=== PATIENT | female | born 1970 | race American Indian/Alaskan Native ===

== ENCOUNTER 2020-08-30 10:06 | Emergency (ER) | payer OTHER ==
--- NOTE | 2020-08-30 10:59 | Emergency Department Report ---
<MAHENDRA SCOTT - Last Filed: 08/30/20 17:34> ED General Adult HPI - General Chief complaint: Back Pain/Injury Stated complaint: back pains Time Seen by Provider: 08/30/20 10:39 - Related Data Previous Rx's Medication Instructions Recorded Last Taken Type Albuterol Sulfate [Proventil Hfa] 6.7 gm IH TID PRN #1 hfa.aer.ad 08/30/20 Unknown Rx Azithromycin [Zithromax TAB] 250 mg PO QDAY 5 Days #6 tablet 08/30/20 Unknown Rx Naproxen [EC-Naprosyn] 500 mg PO BID PRN #20 tablet. 08/30/20 Unknown Rx Prednisone [predniSONE 10 mg 10 mg PO .TAPER #1 tab.ds.pk 08/30/20 Unknown Rx (6-Day Pack, 21 Tabs)] Promethazine [Phenergan] 25 mg PO Q8HR PRN #10 tab 08/30/20 Unknown Rx methOCARBAMOL [Robaxin TAB] 500 mg PO BID PRN #20 tab 08/30/20 Unknown Rx Allergies Allergy/AdvReac Type Severity Reaction Status Date / Time No Known Allergies Allergy Unverified 08/30/20 13:07 ED Past Medical Hx - Medications Home Medications: Home Medications Medication Instructions Recorded Confirmed Last Taken Type Albuterol Sulfate [Proventil Hfa] 6.7 gm IH TID PRN #1 hfa.aer.ad 08/30/20 Unknown Rx Azithromycin [Zithromax TAB] 250 mg PO QDAY 5 Days #6 tablet 08/30/20 Unknown Rx Naproxen [EC-Naprosyn] 500 mg PO BID PRN #20 tablet. 08/30/20 Unknown Rx Prednisone [predniSONE 10 mg 10 mg PO .TAPER #1 tab.ds.pk 08/30/20 Unknown Rx (6-Day Pack, 21 Tabs)] Promethazine [Phenergan] 25 mg PO Q8HR PRN #10 tab 08/30/20 Unknown Rx methOCARBAMOL [Robaxin TAB] 500 mg PO BID PRN #20 tab 08/30/20 Unknown Rx ED Medical Decision Making - Lab Data Result diagrams: 08/30/20 11:14 08/30/20 11:14 - Radiology Data [facility] [address] [place] [address] Cat Scan Report Signed Patient: QUANG WATTS MR#: [id number] [birth year] : 1970 Acct:[id number] Age/Sex: 50 / F ADM Date: 08/30/20 Loc: ED Attending Dr: Ordering Physician: ROLF NICOLAS Date of Service: 08/30/20 Procedure(s): CT angio chest Accession Number(s): [id number] cc: ROLF NICOLAS CTA CHEST WITH IV CONTRAST INDICATION: left scapula pain, tachycardia, hypoxia. Left chest pain with dyspnea TECHNIQUE: Axial CT images were obtained through the chest after injection of 100 mL IV contrast. 3 plane MIP reconstructions were produced. All CT scans at this location are performed using CT dose reduction for ALARA by means of automated exposure control. COMPARISON: None available. FINDINGS: PULMONARY ARTERIES: Technique for detection of pulmonary thromboembolus is fair 2 somewhat suboptimal secondary to respiratory motion artifact. No large central pulmonary thromboembolus is identified. A more distal small embolus would be difficult to exclude.. AORTA AND ARTERIES: No acute abnormality. MEDIASTINUM: No mass, lymphadenopathy or other significant abnormality. The heart is normal in size without a pericardial effusion. The trachea and main bronchi are patent and normal in caliber. LUNGS: No suspicious consolidation, nodule or mass. No pneumothorax or pleural effusion. ADDITIONAL FINDINGS: None. UPPER ABDOMEN: No acute findings. BONES: No significant osseous abnormality. IMPRESSION: 1. No CT evidence for pulmonary embolism within the limits of the exam. Please see above comments 2. No acute findings. Signer Name: Mohan Cristobal MD Signed: 08/30/2020 5:18 PM Workstation Name: [id number] ED Disposition Clinical Impression: Pain of left scapula, Chest pain, pleuritic Asthma Qualifiers: Asthma severity: unspecified severity Asthma persistence: unspecified Asthma complication type: with acute exacerbation Qualified Code(s): J45.901 - Unspecified asthma with (acute) exacerbation Acute bronchitis Qualifiers: Bronchitis organism: unspecified organism Qualified Code(s): J20.9 - Acute bronchitis, unspecified Disposition: DC- TO HOME OR SELFCARE Condition: Stable Instructions: Asthma, Adult, Acute Bronchitis, Adult, Chest Pain (ED), Asthma (ED), Acute Bronchitis (ED) Additional Instructions: please take medication as prescribed. increase your fluid intake. follow up with a primary care doctor. please self quarantine for 10 days. recommend for you to get outpatient COVID 19 testing. return to the emergency room immediately for any new or worsening symptoms. Prescriptions: Naproxen [EC-Naprosyn] 500 mg PO BID PRN #20 tablet.dr PRN Reason: pain Promethazine [Phenergan] 25 mg PO Q8HR PRN #10 tab PRN Reason: nausea/vomiting Prednisone [predniSONE 10 mg (6-Day Pack, 21 Tabs)] 10 mg PO .TAPER #1 tab.ds.pk Albuterol Sulfate [Proventil Hfa] 6.7 gm IH TID PRN #1 hfa.aer.ad PRN Reason: wheezing/shortness of breath methOCARBAMOL [Robaxin TAB] 500 mg PO BID PRN #20 tab PRN Reason: pain Azithromycin [Zithromax TAB] 250 mg PO QDAY 5 Days #6 tablet Referrals: PRIMARY CAREMD [Primary Care Provider] - 2-3 Days MIKHAIL CHIRINOS MD [Staff Physician] - 2-3 Days [facility] [Provider Group] - 2-3 Days Forms: Work/School Release Form(ED) Print Language: BENGALI <MURRAY RODRIGUEZ - Last Filed: 08/30/20 19:59> ED General Adult HPI - General Source: patient Mode of arrival: Ambulatory Limitations: No Limitations - History of Present Illness Initial comments: pt is a 50 yo female who presents to the ED with left upper back pain that began suddenly today while making breakfast. she denies any fall or injury. she denies any heavy lifting or feeling a pulling sensation. she states the pain is to the left scapula. she states her pain is worse with movement and feels a pain when taking a deep breath in. she states she has a chronic cough for a year with clear sputum. she states she is a non smoker. she denies any recent travel, recent surgery, hormone use, sick contacts. she denies any fever, n/v/d, SOB, leg swelling. PMHx HTN. 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 ED Review of Systems ROS: Stated complaint: back pains Other details as noted in HPI Comment: All other systems reviewed and negative ED Past Medical Hx - Past Medical History Previous Medical History?: Yes Hx Hypertension: Yes - Surgical History Past Surgical History?: No ED Physical Exam - General Limitations: No Limitations General appearance: alert, in no apparent distress - Head Head exam: Present: atraumatic, normocephalic - Eye Eye exam: Present: normal appearance - ENT ENT exam: Present: mucous membranes moist - Neck Neck exam: Present: normal inspection, full ROM. Absent: tenderness - Respiratory Respiratory exam: Present: normal lung sounds bilaterally. Absent: respiratory distress, wheezes, rales, rhonchi, stridor, chest wall tenderness, accessory muscle use, decreased breath sounds, prolonged expiratory - Cardiovascular Cardiovascular Exam: Present: regular rate, normal rhythm, normal heart sounds. Absent: systolic murmur, diastolic murmur, rubs, gallop - Neurological Exam Neurological exam: Present: alert, oriented X3 - Psychiatric Psychiatric exam: Present: normal affect, normal mood - Skin Skin exam: Present: warm, dry, intact ED Course Vital Signs 08/30/20 08/30/20 08/30/20 10:11 10:46 13:09 Temperature 98.6 F Pulse Rate 109 H 89 Pulse Rate [ Posterior Bilateral Throughout] Respiratory 20 18 Rate Respiratory Rate [Posterior Bilateral Throughout] Blood Pressure 157/105 Blood Pressure 146/101 [Right] O2 Sat by Pulse 98 99 Oximetry 08/30/20 08/30/20 08/30/20 13:39 14:53 15:15 Temperature Pulse Rate 128 H 127 H Pulse Rate [ Posterior Bilateral Throughout] Respiratory 18 22 19 Rate Respiratory Rate [Posterior Bilateral Throughout] Blood Pressure 145/94 Blood Pressure 152/90 [Right] O2 Sat by Pulse 96 Oximetry 08/30/20 08/30/20 08/30/20 15:30 15:56 16:00 Temperature Pulse Rate 113 H 114 H Pulse Rate [ 130 H Posterior Bilateral Throughout] Respiratory 17 17 Rate Respiratory 24 Rate [Posterior Bilateral Throughout] Blood Pressure 145/94 145/94 Blood Pressure [Right] O2 Sat by Pulse 95 87 Oximetry 08/30/20 08/30/20 08/30/20 16:48 17:00 17:30 Temperature Pulse Rate 128 H 105 H 86 Pulse Rate [ Posterior Bilateral Throughout] Respiratory 21 24 20 Rate Respiratory Rate [Posterior Bilateral Throughout] Blood Pressure 125/83 125/83 125/83 Blood Pressure [Right] O2 Sat by Pulse Oximetry 08/30/20 18:07 Temperature Pulse Rate 101 H Pulse Rate [ Posterior Bilateral Throughout] Respiratory 19 Rate Respiratory Rate [Posterior Bilateral Throughout] Blood Pressure Blood Pressure 127/89 [Right] O2 Sat by Pulse 97 Oximetry - Reevaluation(s) Reevaluation #1: 08/30/20 15:00 pts labs, EKG, CXR are all stable, on revitalization, pts HR is 128, oxygen saturation is 88% on RA, she feels nauseated, upon listening to her breath sounds again she now has wheezing, she is a non smoker, denies hx of asthma ED Medical Decision Making - Lab Data Result diagrams: 08/30/20 11:14 08/30/20 11:14 - EKG Data EKG shows normal: sinus rhythm, axis, intervals, ST-T waves Rate: normal - EKG Data 08/30/20 12:51 low voltage no STEMI - Radiology Data Radiology results: report reviewed Ordering Physician: ROLF NICOLAS Date of Service: 08/30/20 Procedure(s): XR chest routine 2V Accession Number(s): [id number] cc: ROLF NICOLAS Fluoro Time In Minutes: CHEST 2 VIEWS INDICATION / CLINICAL INFORMATION: Chest Pain. COMPARISON: None available. FINDINGS: SUPPORT DEVICES: None. HEART / MEDIASTINUM: No significant abnormality. LUNGS / PLEURA: No significant pulmonary or pleural abnormality. No pneumothorax. ADDITIONAL FINDINGS: No significant additional findings. IMPRESSION: 1. No acute findings. Signer Name: Nava Xie MD Signed: 08/30/2020 11:57 AM Workstation Name: [id number] Transcribed By: JR Dictated By: Nava Xie MD Electronically Authenticated By: Nava Xie MD Signed Date/Time: 08/30/20 1157 DD/ 1157 TD/TT: - Medical Decision Making pt is a 50 yo female who presents to the ED with left upper back pain that began suddenly today while making breakfast. she denies any fall or injury. she denies any heavy lifting or feeling a pulling sensation. she states the pain is to the left scapula. she states her pain is worse with movement and feels a pain when taking a deep breath in. she states she has a chronic cough for a year with clear sputum. she states she is a non smoker. she denies any recent travel, recent surgery, hormone use, sick contacts. she denies any fever, n/v/d, SOB, leg swelling. PMHx HTN. 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 Vitals with mild tachycardia which improved in exam room, mildly elevated blood pressure, otherwise vitals are stable. Patient has no tenderness palpation on exam. Labs are stable. Troponin is negative x2. D-dimer is negative. EKG with low voltage, otherwise normal. Chest x-ray 1. No acute findings. pts labs, EKG, CXR are all stable, on revitalization, pts HR is 128, oxygen saturation is 88% on RA, she feels nauseated, upon listening to her breath sounds again she now has wheezing, she is a non smoker, denies hx of asthma. CT angio chest: 1. No CT evidence for pulmonary embolism within the limits of the exam. Please see above comments 2. No acute findings. Patient given neb treatment and steroids. BNP is normal. On reexamination wheezing has resolved, patient is feeling much better and ready to go home. Patient was ambulated in the emergency department for 2 minutes and maintained oxygen saturation of 97 percent or greater on room air. Patient feels much better and no longer feels short of breath. Patient's pain has improved. Discussed all results with Dr. Mahendra Scott who advises patient can be discharged home with albuterol inhaler and steroids. Patient given prescription for azithromycin, Phenergan, naproxen, Robaxin, prednisone, albuterol inhaler. Advised patient please take medication as prescribed. increase your fluid intake. follow up with a primary care doctor. please self quarantine for 10 days. recommend for you to get outpatient COVID 19 testing. return to the emergency room immediately for any new or worsening symptoms. - Differential Diagnosis Asthma, bronchitis, PNA, COVID-19, PE, PTX, CHF, pleural effusion Critical care attestation.: If time is entered above; I have spent that time in minutes in the direct care of this critically ill patient, excluding procedure time. ED Disposition Is pt being admited?: No Does the pt Need Aspirin: No Time of Disposition: 17:53
[2020-08-30 11:51] LABS: Alanine Aminotransferase 11 units/L (7-56); Albumin 4.4 g/dL (3.9-5); BUN/Creatinine Ratio 11; Blood Urea Nitrogen 10 mg/dL (7-17); Calcium 9.4 mg/dL (8.4-10.2); Hemolysis Index 8
--- NOTE | 2020-08-30 12:01 | XRay Report ---
CHEST 2 VIEWS INDICATION / CLINICAL INFORMATION: Chest Pain. COMPARISON: None available. FINDINGS: SUPPORT DEVICES: None. HEART / MEDIASTINUM: No significant abnormality. LUNGS / PLEURA: No significant pulmonary or pleural abnormality. No pneumothorax. ADDITIONAL FINDINGS: No significant additional findings. IMPRESSION: 1. No acute findings. Signer Name: Nava Xie MD Signed: 08/30/2020 11:57 AM Workstation Name: [id number]
[2020-08-30 12:22] LABS: Basophils # (Auto) 0.1 K/mm3 (0.0-0.1); Basophils % (Auto) 1.3 % (0.0-1.8); Eosinophils # (Auto) 0.5 K/mm3 (0.0-0.4); Eosinophils % (Auto) 7.4 % (0.0-4.3); Hematocrit 47.7 % (30.3-42.9); Hemoglobin 15.1 gm/dl (10.1-14.3); Lymphocytes % (Auto) 15.5 % (13.4-35.0); Mean Corpuscular HGB Conc 32 % (30-34); Mean Corpuscular Volume 83 fl (79-97); Monocytes # (Auto) 0.7 K/mm3 (0.0-0.8); Platelet Count 248 K/mm3 (140-440); Red Blood Count 5.72 M/mm3 (3.65-5.03); Red Cell Distribution Width 15.6 % (13.2-15.2)
[2020-08-30] MEDS ORDERED: CYCLOBENZAPRINE 10 MG TAB PO ONE (12:54)
[2020-08-30] MEDS ORDERED: KETOROLAC 10 MG TAB PO ONE (12:54)
[2020-08-30] MEDS ORDERED: ALBUTEROL 2.5 MG/3 ML NEBU IH ONE (14:58)
[2020-08-30] MEDS ORDERED: ONDANSETRON 4 MG/2 ML INJ IV ONE (14:58)
[2020-08-30] MEDS ORDERED: IPRATROPIUM 0.02% NEBU 2.5 ML IH ONE (14:58)
[2020-08-30] MEDS ORDERED: dexAMETHasone 20 MG/5 ML VIAL IV ONE (14:58)
[2020-08-30 16:06] LABS: INR 0.87 (0.87-1.13); Partial Thromboplastin Time 35.6 Sec. (24.2-36.6)
--- NOTE | 2020-08-30 17:23 | Cat Scan Report ---
CTA CHEST WITH IV CONTRAST INDICATION: left scapula pain, tachycardia, hypoxia. Left chest pain with dyspnea TECHNIQUE: Axial CT images were obtained through the chest after injection of 100 mL IV contrast. 3 plane MIP re constructions were produced. All CT scans at this location are performed using CT dose reduction for ALARA by means of automated exposure control. COMPARISON: None available. FINDINGS: PULMONARY ARTERIES: Technique for detection of pulmonary thromboembolus is fair 2 somewhat suboptimal secondary to respiratory motion artifact. No large central pulmonary thromboembolus is identified. A more distal small embolus would be difficult to exclude.. AORTA AND ARTERIES: No acute abnormality. MEDIASTINUM: No mass, lymphadenopathy or other significant abnormality. The heart is normal in size w ithout a pericardial effusion. The trachea and main bronchi are patent and normal in caliber. LUNGS: No suspicious consolidation, nodule or mass. No pneumothorax or pleural effusion. ADDITIONAL FINDINGS: None. UPPER ABDOMEN: No acute findings. BONES: No significant osseous abnormality. IMPRESSION: 1. No CT evidence for pulmonary embolism within the limits of the exam. Please see above comments 2. No acute findings. Signer Name: Mohan Cristobal MD Signed: 08/30/2020 5:18 PM Workstation Name: [id number]
[2020-08-30 18:07] VITALS: BP 127/89
== END 2020-08-30 18:14 | disposition home or self-care (01) ==
LOC: ED 10:06
DX: J45.909 Unspecified asthma, uncomplicated (principal); J20.9 Acute bronchitis, unspecified; R07.89 Other chest pain; M54.6 Pain in thoracic spine; Z79.2 Long term (current) use of antibiotics; Z79.899 Other long term (current) drug therapy
CPT/HCPCS: 36415; 71046; 71275; 80053; 83880; 84484; 84703; 85025; 85379; 85610; 85730; 93005; 94640; 96374; 96375; 99285; J1100; J2405; Q9967; 94644

== ENCOUNTER 2020-11-10 07:27 | Emergency (ER) | payer OTHER ==
[2020-11-10 07:31] VITALS: BP 153/102
--- NOTE | 2020-11-10 07:35 | Event Note ---
ED Screening Note ED Screening Note: covid in July hx htn on norvasc took this am chills cough sinus s/s HR 94 bp slightly inc This initial assessment/diagnostic orders/clinical plan/treatment(s) is/are subject to change based on patients health status, clinical progression and re- assessment by fellow clinical providers in the ED. Further treatment and workup at subsequent clinical providers discretion. Patient/guardian urged not to elope from the ED as their condition may be serious if not clinically assessed and managed. Initial orders include: xray ro pna
--- NOTE | 2020-11-10 07:43 | Emergency Department Report ---
Minor Respiratory - HPI Chief Complaint: Dyspnea/Respdistress Stated Complaint: COUGH, SOB Time Seen by Provider: 11/10/20 07:30 Duration: 3 Days Pain Location: Chest Severity: mild Minor Respiratory: Yes Sore Throat, Yes Cough, Yes Shortness of Breath, No Rhinorrhea, No Ear Pain, No Sick Contacts, No Hemoptysis, No Chest Pain, No Fever Other History: Patient is a 50-year-old that comes to the emergency room with cough and congestion for 3 days. She is concerned that she has Covid. She states that she has chest pain with the cough. She has shortness of breath with the cough as well. She denies fever or chills. Patient is ambulatory nontoxic [id number] on arrival to triage. She has no hypoxia. She has not been immunized for Covid. Patient endorses sinus pressure and pain yesterday. She also endorses a sore throat and scratchy throat. Patient has a history of hypertension she reports that she is taking her medications. Blood pressure noted to be elevated in triage. The patient is denying any cardiac type chest pain. She has been taking [id number] cough medicines for her cough. ED Review of Systems ROS: Stated complaint: COUGH, SOB Other details as noted in HPI Comment: All other systems reviewed and negative ED Past Medical Hx - Past Medical History Previous Medical History?: Yes Hx Hypertension: Yes - Surgical History Past Surgical History?: No - Social History Smoking Status: Never Smoker Substance Use Type: None - Medications Home Medications: Home Medications Medication Instructions Recorded Confirmed Last Taken Type Albuterol Sulfate [Proventil Hfa] 6.7 gm IH TID PRN #1 hfa.aer.ad 08/30/20 Unknown Rx Azithromycin [Zithromax TAB] 250 mg PO QDAY 5 Days #6 tablet 08/30/20 Unknown Rx Naproxen [EC-Naprosyn] 500 mg PO BID PRN #20 tablet.dr 08/30/20 Unknown Rx Prednisone [predniSONE 10 mg 10 mg PO .TAPER #1 tab.ds.pk 08/30/20 Unknown Rx (6-Day Pack, 21 Tabs)] Promethazine [Phenergan] 25 mg PO Q8HR PRN #10 tab 08/30/20 Unknown Rx methOCARBAMOL [Robaxin TAB] 500 mg PO BID PRN #20 tab 08/30/20 Unknown Rx Amoxicillin [Trimox CAP] 500 mg PO BID #20 capsule 11/10/20 Unknown Rx Cetirizine HCl [ZyrTEC] 10 mg PO DAILY #30 capsule 11/10/20 Unknown Rx Fluticasone [Flonase] 1 spray NS QDAY #1 bottle 11/10/20 Unknown Rx predniSONE [Deltasone] 20 mg PO DAILY #5 tablet 11/10/20 Unknown Rx Minor Respiratory Exam - Exam General: Vital signs noted. No distress. Alert and acting appropriately. HEENT: Yes Moist Mucous Membranes, No Pharyngeal Erythema, No Pharyngeal Exudates, No Rhinorrhea, No Conjuctival Injection, No Frontal Tenderness, No Maxillary Tenderness Ear: Neither TM Bulge, Neither TM Erythema, Neither EAC Pain, Neither EAC Discharge Neck: Yes Supple, No Adenopathy Lungs: Yes Good Air Exchange, No Wheezes, No Ronchi, No Stridor, No Cough, No Labored Respirations, No Retractions, No Use of Accessory Muscles, No Other Abnormal Lung Sounds Heart: Yes Regular, No Murmur Abdomen: Yes Normal Bowel Sounds, No Tenderness, No Peritoneal Signs Skin: No Rash, No Edema Neurologic: Alert and oriented, no deficits. Musculoskeletal: Unremarkable. ED Course Vital Signs 11/10/20 07:28 Temperature 98.3 F Pulse Rate 94 H Respiratory 20 Rate Blood Pressure 153/102 O2 Sat by Pulse 100 Oximetry ED Medical Decision Making - Radiology Data Radiology results: report reviewed, image reviewed NAP - Medical Decision Making Vital Signs 11/10/20 07:28 Temperature 98.3 F Pulse Rate 94 H Respiratory 20 Rate Blood Pressure 153/102 O2 Sat by Pulse 100 Oximetry XR NAP VSS PT BP WAS ELEVATED ON ARRIVAL REPEAT BP ON DC 140/90 PT WILL MONITOR BLOOD PRESSURE AND FOLLOW UP WITH PCP PT BEING DC HOME WITH DC PLAN OF CARE. SHE VERBALIZES UNDERSTANDING OF PLAN INCLUDING FOLLOW UP. - Differential Diagnosis RO PNA Critical care attestation.: If time is entered above; I have spent that time in minutes in the direct care of this critically ill patient, excluding procedure time. ED Disposition Clinical Impression: URI (upper respiratory infection), Sinusitis, Elevated blood pressure reading Disposition: DC-01 TO HOME OR SELFCARE Is pt being admited?: No Does the pt Need Aspirin: No Condition: Stable Instructions: Sinusitis, Adult, [id number] Prescriptions: predniSONE [Deltasone] 20 mg PO DAILY #5 tablet Fluticasone [Flonase] 1 spray NS QDAY #1 bottle Amoxicillin [Trimox CAP] 500 mg PO BID #20 capsule Cetirizine HCl [ZyrTEC] 10 mg PO DAILY #30 capsule Referrals: MIKHAIL CHIRINOS MD [Staff Physician] - 3-5 Days Forms: Work/School Release Form(ED) Time of Disposition: 08:20
--- NOTE | 2020-11-10 08:03 | XRay Report ---
CHEST 2 VIEWS INDICATION: cough chills. COMPARISON: 08/30/2020 FINDINGS: Support devices: None. Heart: Within normal limits. Lungs/pleura: No acute air space or interstitial disease. No pneumothorax. Additional findings: None. IMPRESSION: No acute findings. Signer Name: Devon Lemus Jr, MD Signed: 11/10/2020 7:59 AM Workstation Name: [id number]
== END 2020-11-10 09:02 | disposition home or self-care (01) ==
LOC: ED 07:27
DX: J06.9 Acute upper respiratory infection, unspecified (principal); J32.9 Chronic sinusitis, unspecified; R03.0 Elevated blood-pressure reading, without diagnosis of hypertension; I10 Essential (primary) hypertension; Z79.899 Other long term (current) drug therapy
CPT/HCPCS: 71046

== ENCOUNTER 2021-11-12 22:38 | Emergency (ER) | payer OTHER ==
--- NOTE | 2021-11-12 23:45 | XRay Report ---
CHEST 1 VIEW 11/12/2021 10:33 PM INDICATION / CLINICAL INFORMATION: cough. COMPARISON: Chest 2 views from 11/10/2020. FINDINGS: SUPPORT DEVICES: None. HEART / MEDIASTINUM: No significant abnormality. LUNGS / PLEURA: No significant pulmonary abnormality. No significant pleural effusion. No pneumothora x. ADDITIONAL FINDINGS: No significant additional findings. IMPRESSION: 1. No acute abnormality of the chest. Signer Name: Cornelio Hannah MD Signed: 11/12/2021 11:41 PM Workstation Name: [id number]
[2021-11-13] MEDS ORDERED: methylPREDNISolone Sod Succinate 125 MG/2 ML INJ IM ONE ×3 (01:15→03:33)
[2021-11-13] MEDS ORDERED: IPRATROPIUM 0.02% NEBU 2.5 ML IH ONE (01:15)
[2021-11-13] MEDS ORDERED: ALBUTEROL 2.5 MG/3 ML NEBU IH ONE (01:15)
--- NOTE | 2021-11-13 02:59 | Emergency Department Report ---
- General Chief Complaint: Upper Respiratory Infection Stated Complaint: SOB & COUGHING Source: patient Mode of arrival: Ambulatory Limitations: No Limitations - History of Present Illness Initial Comments: Patient is a 51-year-old -Luxembourger female with a history of hypertension and asthma who presents to the ED with complaint of acute onset persistent nasal and sinus congestion, frontal sinus pressure, persistent dry cough, shortness of breath and wheezing for the last 1 week despite using [id number] medications as well as albuterol inhaler. Patient states that in the last 3 days she has not been able to sleep because of persistent cough, wheezing and shortness of breath. Patient denies dizziness, syncope, fever, chills, sore throat, nausea and vomiting, headache, chest pain, diarrhea, abdominal pain, back pain or neck pain. MD Complaint: cough, rhinorrhea, nasal congestion, sinus pain -: Sudden, week(s) (1) Severity: severe Severity scale (0 -10): 7 Quality: dull, aching Consistency: constant Improves With: nothing Worsens With: nothing Associated Symptoms: denies other symptoms, headache, rhinorrhea, nasal congestion, cough, shortness of breath (With wheezing). denies: myalgias, diaphoresis, sore throat, stiff neck, chest pain, abdominal pain, nausea, vomiting, diarrhea, dysuria, rash, confusion, right sweats, weight loss, epistaxis, hoarseness, ear pain, other Treatments Prior to Arrival: "cold medicine", other (Albuterol inhaler) - Related Data Previous Rx's Medication Instructions Recorded Last Taken Type Naproxen [EC-Naprosyn] 500 mg PO BID PRN #20 tablet. 08/30/20 Unknown Rx Promethazine [Phenergan] 25 mg PO Q8HR PRN #10 tab 08/30/20 Unknown Rx methOCARBAMOL [Robaxin TAB] 500 mg PO BID PRN #20 tab 08/30/20 Unknown Rx Amoxicillin [Trimox CAP] 500 mg PO BID #20 capsule 11/10/20 Unknown Rx predniSONE [Deltasone] 20 mg PO DAILY #5 tablet 11/10/20 Unknown Rx Albuterol Sulfate [Proventil Hfa] 6.7 gm IH TID PRN #1 hfa.aer.ad 11/13/21 Unknown Rx Azithromycin [Zithromax TAB] 250 mg PO QDAY 5 Days #6 tablet 11/13/21 Unknown Rx Benzonatate [Tessalon Perles] 100 mg PO Q8HR #30 cap 11/13/21 Unknown Rx Cetirizine HCl [ZyrTEC 10mg cap] 10 mg PO DAILY #30 capsule 11/13/21 Unknown Rx Fluticasone [Flonase] 1 spray NS QDAY #1 bottle 11/13/21 Unknown Rx Prednisone [predniSONE 10 mg 10 mg PO .TAPER #1 tab.ds.pk 11/13/21 Unknown Rx (6-Day Pack, 21 Tabs)] Allergies Allergy/AdvReac Type Severity Reaction Status Date / Time No Known Allergies Allergy Verified 11/10/20 07:32 ED Review of Systems ROS: Stated complaint: SOB & COUGHING Other details as noted in HPI Constitutional: denies: chills, fever Eyes: denies: eye pain, eye discharge, vision change ENT: congestion, other (Sinus congestion). denies: ear pain, throat pain Respiratory: cough (Dry cough), shortness of breath, wheezing Cardiovascular: denies: chest pain, palpitations Endocrine: no symptoms reported Gastrointestinal: denies: abdominal pain, nausea, diarrhea Genitourinary: denies: urgency, dysuria, discharge Musculoskeletal: denies: back pain, joint swelling, arthralgia Skin: denies: rash, lesions Neurological: denies: headache, weakness, paresthesias Psychiatric: denies: anxiety, depression Hematological/Lymphatic: denies: easy bleeding, easy bruising ED Past Medical Hx - Past Medical History Hx Hypertension: Yes Hx Asthma: Yes - Social History Smoking Status: Never Smoker Substance Use Type: None - Medications Home Medications: Home Medications Medication Instructions Recorded Confirmed Last Taken Type Naproxen [EC-Naprosyn] 500 mg PO BID PRN #20 tablet. 08/30/20 Unknown Rx Promethazine [Phenergan] 25 mg PO Q8HR PRN #10 tab 08/30/20 Unknown Rx methOCARBAMOL [Robaxin TAB] 500 mg PO BID PRN #20 tab 08/30/20 Unknown Rx Amoxicillin [Trimox CAP] 500 mg PO BID #20 capsule 11/10/20 Unknown Rx predniSONE [Deltasone] 20 mg PO DAILY #5 tablet 11/10/20 Unknown Rx Albuterol Sulfate [Proventil Hfa] 6.7 gm IH TID PRN #1 hfa.aer.ad 11/13/21 Unknown Rx Azithromycin [Zithromax TAB] 250 mg PO QDAY 5 Days #6 tablet 11/13/21 Unknown Rx Benzonatate [Tessalon Perles] 100 mg PO Q8HR #30 cap 11/13/21 Unknown Rx Cetirizine HCl [ZyrTEC 10mg cap] 10 mg PO DAILY #30 capsule 11/13/21 Unknown Rx Fluticasone [Flonase] 1 spray NS QDAY #1 bottle 11/13/21 Unknown Rx Prednisone [predniSONE 10 mg 10 mg PO .TAPER #1 tab.ds.pk 11/13/21 Unknown Rx (6-Day Pack, 21 Tabs)] ED Physical Exam - General Limitations: No Limitations General appearance: alert, in no apparent distress - Head Head exam: Present: atraumatic, normocephalic, normal inspection - Eye Eye exam: Present: normal appearance, PERRL, EOMI Pupils: Present: normal accommodation - ENT ENT exam: Present: normal orophraynx, mucous membranes moist, TM's normal bilaterally, normal external ear exam, other (Grossly congested nasal passages; palpable frontal and maxillary sinus tenderness) - Neck Neck exam: Present: normal inspection, full ROM. Absent: tenderness - Respiratory Respiratory exam: Present: wheezes (Diffuse coarse wheezes throughout). Absent: normal lung sounds bilaterally, respiratory distress, rales, rhonchi, chest wall tenderness, accessory muscle use, decreased breath sounds, prolonged expiratory - Cardiovascular Cardiovascular Exam: Present: regular rate, normal rhythm, normal heart sounds. Absent: systolic murmur, diastolic murmur, rubs, gallop - GI/Abdominal GI/Abdominal exam: Present: soft, normal bowel sounds. Absent: tenderness, gua rding, rebound, hyperactive bowel sounds, mass - Extremities Exam Extremities exam: Present: normal inspection, full ROM, normal capillary refill. Absent: tenderness - Back Exam Back exam: Present: normal inspection, full ROM. Absent: tenderness, CVA tenderness (R), CVA tenderness (L), muscle spasm, paraspinal tenderness, vertebral tenderness - Neurological Exam Neurological exam: Present: alert, oriented X3, CN II-XII intact, normal gait, reflexes normal - Psychiatric Psychiatric exam: Present: normal affect, normal mood - Skin Skin exam: Present: warm, dry, intact, normal color. Absent: rash ED Course Vital Signs 11/12/21 11/13/21 23:15 02:10 Temperature 98.1 F Pulse Rate 90 Pulse Rate [ 90 Bilateral Throughout] Respiratory 18 Rate Respiratory 20 Rate [Bilateral Throughout] Blood Pressure 151/97 O2 Sat by Pulse 96 Oximetry ED Medical Decision Making - Radiology Data Radiology results: report reviewed, image reviewed [facility] [address] [place] [address] XRay Report Signed Patient: QUANG WATTS MR#: [id number] [birth year] : 1970 Acct:[id number] Age/Sex: 51 / F ADM Date: 11/12/21 Loc: ED Attending Dr: Ordering Physician: ROLF PRIETO Date of Service: 11/12/21 Procedure(s): XR chest 1V ap Accession Number(s): [id number] cc: ROLF PRIETO Fluoro Time In Minutes: CHEST 1 VIEW 11/12/2021 10:33 PM INDICATION / CLINICAL INFORMATION: cough. COMPARISON: Chest 2 views from 11/10/2020. FINDINGS: SUPPORT DEVICES: None. HEART / MEDIASTINUM: No significant abnormality. LUNGS / PLEURA: No significant pulmonary abnormality. No significant pleural effusion. No pneumothorax. ADDITIONAL FINDINGS: No significant additional findings. IMPRESSION: 1. No acute abnormality of the chest. Signer Name: Cornelio Hannah MD Signed: 11/12/2021 11:41 PM Workstation Name: [id number] Transcribed By: MN Dictated By: Cornelio Hannah MD Electronically Authenticated By: Cornelio Hannah MD Signed Date/Time: 11/12/212340 DD/ 39 TD/TT: - Medical Decision Making This is a 51-year-old -Luxembourger female with a history of hypertension and asthma who presents to the ED with complaint of acute onset persistent nasal and sinus congestion, frontal sinus pressure, persistent dry cough, shortness of breath and wheezing for the last 1 week despite using jlzk-eqo-twongpj medications as well as albuterol inhaler. Patient states that in the last 3 days she has not been able to sleep because of persistent cough, wheezing and shortness of breath. In the ED, patient is alert and oriented x3 and is not in any distress. Chest x-ray showed no acute cardiopulmonary abnormalities or pneumonitis. Patient was treated in the ED with DuoNeb and Solu-Medrol 125 mg intramuscular injection. On reevaluation, patient's wheezing resolved medicati on. Patient will discharge home on medications and her oxygen saturation ranged from 98 to 99% in room air. Patient was therefore advised return to the ED immediately if symptoms get worse, otherwise follow-up with her primary care physician in 7 to 10 days for reevaluation. - Differential Diagnosis Asthma; bronchitis; rhinitis; URI; sinusitis Critical care attestation.: If time is entered above; I have spent that time in minutes in the direct care of this critically ill patient, excluding procedure time. ED Disposition Clinical Impression: Acute asthmatic bronchitis, Acute upper respiratory infection Acute frontal sinusitis, unspecified Qualifiers: Recurrence: not specified as recurrent Qualified Code(s): J01.10 - Acute frontal sinusitis, unspecified Disposition: HOME / SELF CARE / HOMELESS Is pt being admited?: No Does the pt Need Aspirin: No Condition: Stable Instructions: Acute Bronchitis (ED), Sinusitis, Adult, Gvtl-[id number], Upper Respiratory Infection, Adult, Fawb-qq-Elsz, Cough, Adult, Yazb-jf-Lokb, Asthma, Adult, Tqma-nc-Xiyo, Acute Bronchitis, Adult, Feee-qy-Ntwp Additional Instructions: Chest x-ray showed no acute cardiopulmonary abnormalities or pneumonitis. Therefore take medications as advised, drink plenty of fluids, follow-up with your primary care physician in 7 to 10 days for reevaluation. Return to the ED immediately if symptoms get worse. Prescriptions: Fluticasone [Flonase] 1 spray NS QDAY #1 bottle Prednisone [predniSONE 10 mg (6-Day Pack, 21 Tabs)] 10 mg PO .TAPER #1 tab.ds.pk Albuterol Sulfate [Proventil Hfa] 6.7 gm IH TID PRN #1 hfa.aer.ad PRN Reason: wheezing/shortness of breath Benzonatate [Tessalon Perles] 100 mg PO Q8HR #30 cap Azithromycin [Zithromax TAB] 250 mg PO QDAY 5 Days #6 tablet Cetirizine HCl [ZyrTEC 10mg cap] 10 mg PO DAILY #30 capsule Referrals: [facility] [Provider Group] - 7-10 days Time of Disposition: 03:00 Print Language: MACEDONIAN
[2021-11-13 04:07] VITALS: BP 140/92
== END 2021-11-13 04:07 | disposition home or self-care (01) ==
LOC: ED 22:38
DX: J45.909 Unspecified asthma, uncomplicated (principal); J06.9 Acute upper respiratory infection, unspecified; J01.10 Acute frontal sinusitis, unspecified; I10 Essential (primary) hypertension; Z79.899 Other long term (current) drug therapy
CPT/HCPCS: 71045; 94640; 96372; 99283; J2930; 94644

== ENCOUNTER 2021-11-14 01:55 | Emergency (ER) | payer OTHER ==
[2021-11-14 02:29] VITALS: BP 138/87
[2021-11-14] MEDS ORDERED: IPRATROPIUM 0.02% NEBU 2.5 ML IH ONE ×2 (02:37→04:42)
[2021-11-14] MEDS ORDERED: ALBUTEROL 2.5 MG/3 ML NEBU IH ONE ×2 (02:37→04:42)
--- NOTE | 2021-11-14 02:41 | Emergency Department Report ---
ED Asthma HPI - General Chief Complaint: Adult Asthma Stated Complaint: SUPA/SOB Time Seen by Provider: 11/14/21 02:32 Source: patient Mode of arrival: Stretcher Limitations: No Limitations - History of Present Illness Initial Comments: Patient is 51 years old female with history of asthma. Patient brought to the emergency room via EMS for evaluation of shortness of breath and wheezing. Patient was seen here yesterday patient stated that she feels her medication however she did not took her prednisone yet. She denies any fever or chills. Patient received albuterol by EMS and stated that she is feeling much better. Chest x-ray from last time reviewed and is unremarkable. MD Complaint: "asthma attack", wheezing -: Sudden Asthma History: history of prior ED visit Context: none known Treatments Prior to Arrival: inhaled bronchodilator - Related Data Previous Rx's Medication Instructions Recorded Last Taken Type Naproxen [EC-Naprosyn] 500 mg PO BID PRN #20 tablet.dr 08/30/20 Unknown Rx Promethazine [Phenergan] 25 mg PO Q8HR PRN #10 tab 08/30/20 Unknown Rx methOCARBAMOL [Robaxin TAB] 500 mg PO BID PRN #20 tab 08/30/20 Unknown Rx Amoxicillin [Trimox CAP] 500 mg PO BID #20 capsule 11/10/20 Unknown Rx predniSONE [Deltasone] 20 mg PO DAILY #5 tablet 11/10/20 Unknown Rx Albuterol Sulfate [Proventil Hfa] 6.7 gm IH TID PRN #1 hfa.aer.ad 11/13/21 Unknown Rx Azithromycin [Zithromax TAB] 250 mg PO QDAY 5 Days #6 tablet 11/13/21 Unknown Rx Benzonatate [Tessalon Perles] 100 mg PO Q8HR #30 cap 11/13/21 Unknown Rx Cetirizine HCl [ZyrTEC 10mg cap] 10 mg PO DAILY #30 capsule 11/13/21 Unknown Rx Fluticasone [Flonase] 1 spray NS QDAY #1 bottle 11/13/21 Unknown Rx Prednisone [predniSONE 10 mg 10 mg PO .TAPER #1 tab.ds.pk 11/13/21 Unknown Rx (6-Day Pack, 21 Tabs)] Allergies Allergy/AdvReac Type Severity Reaction Status Date / Time No Known Allergies Allergy Verified 11/10/20 07:32 ED Review of Systems ROS: Stated complaint: SUPA/SOB Other details as noted in HPI Comment: All other systems reviewed and negative Constitutional: denies: chills, fever Respiratory: shortness of breath, SOB with exertion, wheezing Cardiovascular: dyspnea on exertion. denies: chest pain, palpitations Gastrointestinal: abdominal pain. denies: nausea, vomiting Musculoskeletal: denies: back pain Neurological: denies: headache, weakness, numbness, paresthesias, confusion, abnormal gait ED Past Medical Hx - Past Medical History Previous Medical History?: Yes Hx Hypertension: Yes Hx Asthma: Yes - Surgical History Past Surgical History?: No - Social History Smoking Status: Never Smoker Substance Use Type: None - Medications Home Medications: Home Medications Medication Instructions Recorded Confirmed Last Taken Type Naproxen [EC-Naprosyn] 500 mg PO BID PRN #20 tablet.dr 08/30/20 Unknown Rx Promethazine [Phenergan] 25 mg PO Q8HR PRN #10 tab 08/30/20 Unknown Rx methOCARBAMOL [Robaxin TAB] 500 mg PO BID PRN #20 tab 08/30/20 Unknown Rx Amoxicillin [Trimox CAP] 500 mg PO BID #20 capsule 11/10/20 Unknown Rx predniSONE [Deltasone] 20 mg PO DAILY #5 tablet 11/10/20 Unknown Rx Albuterol Sulfate [Proventil Hfa] 6.7 gm IH TID PRN #1 hfa.aer.ad 11/13/21 Unknown Rx Azithromycin [Zithromax TAB] 250 mg PO QDAY 5 Days #6 tablet 11/13/21 Unknown Rx Benzonatate [Tessalon Perles] 100 mg PO Q8HR #30 cap 11/13/21 Unknown Rx Cetirizine HCl [ZyrTEC 10mg cap] 10 mg PO DAILY #30 capsule 11/13/21 Unknown Rx Fluticasone [Flonase] 1 spray NS QDAY #1 bottle 11/13/21 Unknown Rx Prednisone [predniSONE 10 mg 10 mg PO .TAPER #1 tab.ds.pk 11/13/21 Unknown Rx (6-Day Pack, 21 Tabs)] ED Physical Exam - General Limitations: No Limitations General appearance: alert, in no apparent distress - Head Head exam: Present: atraumatic, normocephalic, normal inspection - Eye Eye exam: Present: normal appearance, PERRL - ENT ENT exam: Present: normal exam, normal orophraynx, mucous membranes moist - Neck Neck exam: Present: normal inspection, full ROM. Absent: tenderness, meningismus - Respiratory Respiratory exam: Present: respiratory distress, wheezes, prolonged expiratory. Absent: rales, rhonchi, accessory muscle use, decreased breath sounds - Cardiovascular Cardiovascular Exam: Present: tachycardia - GI/Abdominal GI/Abdominal exam: Present: soft, normal bowel sounds. Absent: distended, tenderness, guarding, rebound, rigid, organomegaly, mass, bruit, pulsatile mass, hernia - Extremities Exam Extremities exam: Present: normal inspection, full ROM, normal capillary refill. Absent: tenderness - Back Exam Back exam: Present: normal inspection, full ROM. Absent: CVA tenderness (R), CVA tenderness (L) - Neurological Exam Neurological exam: Present: alert, oriented X3, CN II-XII intact, normal gait, reflexes normal. Absent: motor sensory deficit - Psychiatric Psychiatric exam: Present: normal mood - Skin Skin exam: Present: warm, intact, normal color ED Course Vital Signs 11/14/21 02:14 Temperature 98 F Pulse Rate 120 H Respiratory 18 Rate Blood Pressure 138/87 O2 Sat by Pulse 97 Oximetry ED Medical Decision Making - Medical Decision Making Patient is 51 years old female with history of asthma. Patient brought to the emergency room via EMS for evaluation of shortness of breath and wheezing. Patient was seen here yesterday patient stated that she feels her medication however she did not took her prednisone yet. She denies any fever or chills. Patient received albuterol by EMS and stated that she is feeling much better. Chest x-ray from last time reviewed and is unremarkable. Patient received albuterol and Atrovent. Patient stated that she is feeling much better. Patient advised to continue her prescriptions from last visit and to follow-up with her primary doctor in the next 2 to 3 days and to return to the ER if she develop any new symptoms. Critical care attestation.: If time is entered above; I have spent that time in minutes in the direct care of this critically ill patient, excluding procedure time. ED Disposition Clinical Impression: Acute asthma exacerbation Disposition: HOME / SELF CARE / HOMELESS Is pt being admited?: No Condition: Stable Instructions: Asthma Attack Prevention, Adult Referrals: PRIMARY CARE, [Referring] - 3-5 Days
== END 2021-11-14 06:26 | disposition home or self-care (01) ==
LOC: ED 01:55
DX: J45.901 Unspecified asthma with (acute) exacerbation (principal); I10 Essential (primary) hypertension
CPT/HCPCS: 94640; 94644; 99282; 99283

== ENCOUNTER → 2022-04-22 | Emergency (ER) | payer OTHER ==
[2022-04-22 18:09] VITALS: BP 137/97
--- NOTE | 2022-04-22 18:54 | XRay Report ---
CHEST 2 VIEWS INDICATION / CLINICAL INFORMATION: Upper Respiratory Infection. COMPARISON: 11/12/2021 FINDINGS: SUPPORT DEVICES: None. HEART / MEDIASTINUM: No significant abnormality. LUNGS / PLEURA: No significant pulmonary or pleural abnormality. No pneumothorax. ADDITIONAL FINDINGS: No significant additional findings. IMPRESSION: 1. No acute findings. Signer Name: Abhinav Austin DO Signed: 04/22/2022 6:50 PM Workstation Name: [id number]
[2022-04-22 19:30] LABS: Basophils # (Auto) 0.1 K/mm3 (0.0-0.1); Eosinophils # (Auto) 0.9 K/mm3 (0.0-0.4); Hematocrit 45.1 % (30.3-42.9); Hemoglobin 14.4 gm/dl (10.1-14.3); Lymphocytes # (Auto) 2.1 K/mm3 (1.2-5.4); Lymphocytes % (Auto) 20.6 % (13.4-35.0); Mean Corpuscular HGB Conc 32 % (30-34); Mean Corpuscular Volume 81 fl (79-97); Monocytes # (Auto) 1.1 K/mm3 (0.0-0.8); Monocytes % (Auto) 10.8 % (0.0-7.3); Platelet Count 252 K/mm3 (140-440); Red Blood Count 5.57 M/mm3 (3.65-5.03); Red Cell Distribution Width 15.9 % (13.2-15.2)
[2022-04-22 19:40] LABS: BUN/Creatinine Ratio 10; Blood Urea Nitrogen 10 mg/dL (7-17); Calcium 9.3 mg/dL (8.4-10.2); Hemolysis Index 4
--- NOTE | 2022-04-22 20:37 | Emergency Department Report ---
- General Chief Complaint: Upper Respiratory Infection Stated Complaint: COUGHING/WHEEZING/SOB Time Seen by Provider: 04/22/22 20:34 Source: patient Mode of arrival: Ambulatory Limitations: No Limitations - History of Present Illness MD Complaint: cough, rhinorrhea, nasal congestion, sinus pain -: Gradual, days(s) (3) Consistency: constant Improves With: nothing Worsens With: nothing Associated Symptoms: rhinorrhea, nasal congestion, cough, shortness of breath. denies: chest pain, abdominal pain, confusion, right sweats, weight loss, epistaxis, hoarseness Treatments Prior to Arrival: none - Related Data Previous Rx's Medication Instructions Recorded Last Taken Type Naproxen [EC-Naprosyn] 500 mg PO BID PRN #20 tablet.dr 08/30/20 Unknown Rx Promethazine [Phenergan] 25 mg PO Q8HR PRN #10 tab 08/30/20 Unknown Rx methOCARBAMOL [Robaxin TAB] 500 mg PO BID PRN #20 tab 08/30/20 Unknown Rx Amoxicillin [Trimox CAP] 500 mg PO BID #20 capsule 11/10/20 Unknown Rx predniSONE [Deltasone] 20 mg PO DAILY #5 tablet 11/10/20 Unknown Rx Albuterol Sulfate [Proventil Hfa] 6.7 gm IH TID PRN #1 hfa.aer.ad 11/13/21 Unknown Rx Azithromycin [Zithromax TAB] 250 mg PO QDAY 5 Days #6 tablet 11/13/21 Unknown Rx Benzonatate [Tessalon Perles] 100 mg PO Q8HR #30 cap 11/13/21 Unknown Rx Cetirizine HCl [ZyrTEC 10mg cap] 10 mg PO DAILY #30 capsule 11/13/21 Unknown Rx Fluticasone [Flonase] 1 spray NS QDAY #1 bottle 11/13/21 Unknown Rx Prednisone [predniSONE 10 mg 10 mg PO .TAPER #1 tab.ds.pk 11/13/21 Unknown Rx (6-Day Pack, 21 Tabs)] Albuterol Mdi (or & Nicu Only) 1 puff IH Q4-6H PRN #1 inha 04/22/22 Unknown Rx [ProAir HFA Inhaler] Benzonatate [Tessalon Perles] 100 mg PO Q8HR #20 capsule 04/22/22 Unknown Rx predniSONE [Deltasone] 50 mg PO QDAY #5 tab 04/22/22 Unknown Rx Allergies Allergy/AdvReac Type Severity Reaction Status Date / Time No Known Allergies Allergy Verified 04/22/22 18:10 ED Review of Systems ROS: Stated complaint: COUGHING/WHEEZING/SOB Other details as noted in HPI Comment: All other systems reviewed and negative ED Past Medical Hx - Past Medical History Hx Hypertension: Yes Hx Asthma: Yes - Social History Smoking Status: Never Smoker Substance Use Type: None - Medications Home Medications: Home Medications Medication Instructions Recorded Confirmed Last Taken Type Naproxen [EC-Naprosyn] 500 mg PO BID PRN #20 tablet.dr 08/30/20 Unknown Rx Promethazine [Phenergan] 25 mg PO Q8HR PRN #10 tab 08/30/20 Unknown Rx methOCARBAMOL [Robaxin TAB] 500 mg PO BID PRN #20 tab 08/30/20 Unknown Rx Amoxicillin [Trimox CAP] 500 mg PO BID #20 capsule 11/10/20 Unknown Rx predniSONE [Deltasone] 20 mg PO DAILY #5 tablet 11/10/20 Unknown Rx Albuterol Sulfate [Proventil Hfa] 6.7 gm IH TID PRN #1 hfa.aer.ad 11/13/21 Un known Rx Azithromycin [Zithromax TAB] 250 mg PO QDAY 5 Days #6 tablet 11/13/21 Unknown Rx Benzonatate [Tessalon Perles] 100 mg PO Q8HR #30 cap 11/13/21 Unknown Rx Cetirizine HCl [ZyrTEC 10mg cap] 10 mg PO DAILY #30 capsule 11/13/21 Unknown Rx Fluticasone [Flonase] 1 spray NS QDAY #1 bottle 11/13/21 Unknown Rx Prednisone [predniSONE 10 mg 10 mg PO .TAPER #1 tab.ds.pk 11/13/21 Unknown Rx (6-Day Pack, 21 Tabs)] Albuterol Mdi (or & Nicu Only) 1 puff IH Q4-6H PRN #1 inha 04/22/22 Unknown Rx [ProAir HFA Inhaler] Benzonatate [Tessalon Perles] 100 mg PO Q8HR #20 capsule 04/22/22 Unknown Rx predniSONE [Deltasone] 50 mg PO QDAY #5 tab 04/22/22 Unknown Rx ED Physical Exam - General Limitations: No Limitations General appearance: alert, in no apparent distress - Head Head exam: Present: atraumatic, normocephalic - Eye Eye exam: Present: normal appearance, PERRL, EOMI Pupils: Present: normal accommodation - ENT ENT exam: Present: mucous membranes moist - Neck Neck exam: Present: normal inspection - Respiratory Respiratory exam: Present: normal lung sounds bilaterally. Absent: respiratory distress, wheezes, rales, rhonchi, chest wall tenderness, accessory muscle use, decreased breath sounds - Cardiovascular Cardiovascular Exam: Present: regular rate, normal rhythm. Absent: systolic murmur, diastolic murmur, rubs, gallop - GI/Abdominal GI/Abdominal exam: Present: soft, normal bowel sounds. Absent: distended, guarding, hypoactive bowel sounds, organomegaly, mass, bruit - Extremities Exam Extremities exam: Present: normal inspection - Back Exam Back exam: Present: normal inspection - Neurological Exam Neurological exam: Present: alert, oriented X3 - Psychiatric Psychiatric exam: Present: normal affect, normal mood - Skin Skin exam: Present: warm, dry, intact, normal color. Absent: rash ED Course Vital Signs 04/22/22 04/22/22 18:05 20:57 Temperature 98.5 F Pulse Rate 100 H 90 Respiratory 18 18 Rate Blood Pressure 137/97 [Left] O2 Sat by Pulse 92 93 Oximetry ED Medical Decision Making - Lab Data Result diagrams: 04/22/22 18:30 04/22/22 18:30 - Radiology Data Radiology results: report reviewed CT of the chest and chest x-ray normal - Medical Decision Making This patient presents with acute cough, most consistent with nonemergent condition. Differential diagnosis includes bronchitis, asthma, pneumonia, hyperreactive airway disease. Presentation not consistent with acute bacterial pneumonia, influenza, asthma, transient airway hyperresponsiveness. Due to the degree of discomfort and symptom presentations CTA of the chest was obtained to rule out for any PE and CTA was negative presentation not consistent with chronic causes of cough (including GERD, asthma, postnasal discharge, medication side effect, CHF, lung cancer or mass). CT of the chest and chest x-ray normal Plan: , supportive care, reassess Critical care attestation.: If time is entered above; I have spent that time in minutes in the direct care of this critically ill patient, excluding procedure time. ED Disposition Clinical Impression: Chest pain, Cough Disposition: 01 HOME / SELF CARE / HOMELESS Is pt being admited?: No Does the pt Need Aspirin: No Condition: Stable Instructions: Nonspecific Chest Pain, Adult Prescriptions: predniSONE [Deltasone] 50 mg PO QDAY #5 tab Albuterol Mdi (or & Nicu Only) [ProAir HFA Inhaler] 1 puff IH Q4-6H PRN #1 inha PRN Reason: Cough Benzonatate [Tessalon Perles] 100 mg PO Q8HR #20 capsule Referrals: PRIMARY CARE, [Primary Care Provider] - 3-5 Days
--- NOTE | 2022-04-25 12:35 | Cat Scan Report ---
CTA CHEST WITH CONTRAST INDICATION / CLINICAL INFORMATION: cp sob. TECHNIQUE: Axial CT images were obtained through the chest after injection of IV contrast. 3 plane MIP and/or 3D reconstructions were produced. All CT scans at this location are performed using CT dose reduction for ALARA by means of automated exposure control. COMPARISON: Chest x-ray 04/22/2022 FINDINGS: VASCULAR FINDINGS: PULMONARY ARTERY: Pulmonary artery is normal in size. No filling defects are present compatible with pulmonary artery embolus.. THORACIC AORTA: No significant abnormality. CORONARY ARTERY CALCIFICATION: Absent -- None. NONVASCULAR FINDINGS: LOWER NECK: Soft tissues and musculature of the lower neck demonstrate no significant abnormality. The thyroid demonstrates no significant abnormality. HEART: No significant abnormality. MEDIASTINUM / PADMINI: No significant abnormality. ESOPHAGUS: No significant abnormality. LYMPH NODES: No adenopathy within the axilla, mediastinum, or padmini. LUNGS: No acute air space or interstitial disease. PLEURA: No pleural effusion. No pneumothorax. THORACIC SOFT TISSUES: No significant abnormality of the chest wall or upper thoracic musculature. BONES: No significant skeletal abnormalities. ADDITIONAL CHEST FINDINGS: None. UPPER ABDOMEN: No significant abnormality. IMPRESSION: 1. No CT evidence for pulmonary embolism. 2. No acute findings. Signer Name: Catrachito Carvajal II, MD Signed: 04/22/2022 10:29 PM Workstation Name: [id number]
== END | disposition home or self-care (01) ==
LOC: ED 17:58
DX: R07.9 Chest pain, unspecified (principal); R05.9 Cough, unspecified; I10 Essential (primary) hypertension; J45.909 Unspecified asthma, uncomplicated
CPT/HCPCS: 36415; 71046; 71275; 80048; 85025; 99284